=== PATIENT | male | born 1970 | race Caucasian/White ===

== ENCOUNTER → 2019-10-18 08:01 | Outpatient (BNVA) | payer BC, SELFPAY | PROVIDERS: Family Provider Family Medicine; PCP Family Medicine; Visit Provider Surgery | DX: L72.3 Sebaceous cyst (principal) | CPT/HCPCS: 88304 ==

== ENCOUNTER → 2021-07-10 16:09 | Outpatient (BNVA) | payer BC, SELFPAY | PROVIDERS: Family Provider Family Medicine; PCP Family Medicine; Referring Provider Family Medicine; Visit Provider Orthopaedic Surgery | DX: S89.91XA Unspecified injury of right lower leg, initial encounter (principal); W18.41XA Slipping, tripping and stumbling without falling due to stepping on object, initial encounter | CPT/HCPCS: 73560; 73565 ==

== ENCOUNTER 2022-09-04 13:37 | Emergency (ER) | payer BC, SELFPAY ==
[2022-09-04 13:42] VITALS: BP 131/74; PULSE 98; RESP 18; TEMP 38; O2SAT 94; BMI 31.1
--- NOTE | 2022-09-04 13:51 | XR_ITS ---
WS: [id number] Right knee, 3 views, 09/04/2022 Clinical Data: pain, swelling and fever Comparison: AP knees, right knee, 07/10/2021 Findings: The right knee arthroplasty shows the components are in good position. No periprosthetic fractures or loosening is seen. There is suprapatellar bursal swelling. XR/XR knee RT 3V* [id number] Impression: 1. Right knee arthroplasty. 2. Suprapatellar bursal swelling.
[2022-09-04 14:42] LABS: Basophils % 0.1 %; Hematocrit 42.6 % (42.0-52.0); Hemoglobin 14.2 g/dL (11.7-16.6); Lymphocytes # 0.9 10^3/uL (0.8-4.8); Lymphocytes % 5.1 %; Mean Corpuscular HGB Conc 33.3 g/dL (30.0-36.0); Mean Corpuscular Hemoglobin 28.5 pg (28.0-34.0); Mean Corpuscular Volume 85.5 fl (80-94); Mean Platelet Volume 10.1 fL (7.4-10.4); Monocytes # 0.9 10^3/uL (0.2-0.9); Monocytes % 5.3 %; Neutrophils # 14.98 10^3/uL (1.8-7.7); Neutrophils % 89.1 %; Nucleated Red Blood Cells % 0 %; Platelet Count 177 10^3/cmm (130-400); Red Blood Count 4.98 10^6/uL (4.1-5.3); Red Cell Distribution Width 13.1 % (12.1-15.1); White Blood Count 16.8 10^3/uL (4.0-10.0)
[2022-09-04 14:44] LABS: Erythrocyte Sedimentation Rate 43 mm/hr (0-10)
[2022-09-04 15:07] LABS: Alanine Aminotransferase 12 U/L (0-41); Alkaline Phosphatase 65 U/L (40-130); Aspartate Amino Transferase 14 U/L (0-40); Blood Urea Nitrogen 17 mg/dL (6-20); Calcium 8.8 mg/dL (8.5-10.5); Carbon Dioxide 22 mmol/L (22-29); Chloride 96 mmol/L (98-107); Globulin 3.3 g/dL (1.3-4.6); Glomerular Filtration Rate 88.6 mL/min (90-130); Glucose 156 mg/dL (65-115); Osmolality Calculated 275 mOsm/kg (285-295); Sodium 130 mmol/L (136-145); Total Bilirubin 0.4 mg/dL (0.15-1.2); Total Protein 7.3 g/dL (6.6-8.7)
[2022-09-04 15:23] LABS: Lactate (Lactic Acid level) 0.8 mmol/L (0.5-2.2)
[2022-09-04 15:54] LABS: Procalcitonin 0.32 ng/mL (0-0.5)
--- NOTE | 2022-09-04 16:03 | ED_ITS ---
HPI - Extremity Problem General: Chief complaint: Extremity Injury, Lower Stated complaint: right knee pain Time Seen by Provider: 09/04/22 16:03 History of Present Illness: Mr. Thomas is a 52-year-old gentleman with history of right knee replacement presenting to the emergency department for atraumatic onset of pain and swelling. Reports onset of symptoms a few days ago initially noticing some tightness or discomfort in the posterior aspect of his knee. He subsequently has developed increased swelling pain which is about the knee and radiates distally. He notes swelling and warmth. He has been febrile at home without other source of infection or infectious symptoms reported. Tmax 103. No other specific changes in health, exacerbating, or alleviating factors identified. Onset (ago): day(s) Pain Consistency: constant Quality: aching Radiation: distal Relieving factors: nothing Exacerbating factors: range of motion, weight bearing, walking and palpation Associated symptoms: Reports fever(s) Review of Systems General: Reports: 10 or more systems reviewed and unremarkable except in HPI and below Const: Reports: fever(s) PFSH ED PFSH: Surgical History History of lateral meniscus repair of right knee Family History Denies family history of Anesthesia complication Bleeding disorder Social History Smoking and tobacco status: never smoked Quit status (tobacco): has quit using tobacco Former quit date comment: AT 28 YEARS OLD Alcohol intake: former Former alcohol use details: QUIT AROUND 28 YRS OLD Adopted: No Caregiver/support person: Yes Lives independently: Yes Household members: spouse Housing: House Physical Exam Const: COMMON NORMALS: alert GENERAL APPEARANCE: cooperative, well developed and ill appearing HENMT: COMMON NORMALS: normocephalic and atraumatic HEAD & SCALP: normocephalic and atraumatic THROAT: posterior oropharynx normal Eye: COMMON NORMALS: conjunctivae normal CONJUNCTIVA: Yes conjunctivae normal SCLERA: sclerae normal Neck/C-Spine: COMMON NORMALS: supple GENERAL: Yes trachea midline Resp: COMMON NORMALS: clear to auscultation bilaterally EFFORT & INSPECTION: Yes able to speak in complete sentences AUSCULTATION: clear to auscultation bilaterally Cardio: COMMON NORMALS: regular rate and regular rhythm RATE: regular rate RHYTHM: regular rhythm GI: COMMON NORMALS: Soft to palpation PALPATION: Yes Soft to palpation and No Tenderness to palpation present (GI) Extremity: NARRATIVE EXTREMITY EXAM: Significant edema without overlying cellulitic changes to the right knee. There is warmth to palpation and tenderness. Tenderness distally or distal CMS intact. There is a small insect bite however this does not appear to be clinically significant as a source of infection. GENERAL: Yes normal exam except as noted and No edema Neuro: COMMON NORMALS: moves all extremities SENSORIUM/ORIENTATION: Yes alert and No Orientation impaired Psych: COMMON NORMALS: mental status grossly normal and Normal thought process present THOUGHT PROCESS: Normal thought process present Course Vital Signs: Vital signs: Vital Signs Temperature 100.4 F H 09/04/22 13:42 Pulse Rate 88 09/04/22 18:45 Respiratory Rate 20 H 09/04/22 18:45 Blood Pressure 148/78 09/04/22 18:45 Pulse Oximetry 95 09/04/22 18:45 Oxygen Delivery Me thod 09/04/22 13:42 MDM - Extremity (Nontraumatic) Medical Decision Making 52-year-old gentleman presenting with atraumatic knee pain and swelling associated with fever in the context of knee replacement. Exam concerning for infected joint. Patient reports he was and is febrile here with borderline high heart rate. Labs with leukocytosis, normal hemoglobin and platelet count. Mild hyponatremia and hypochloremia. Likely related dehydration. ESR and CMP are elevated. Negative urinalysis. No evidence of hardware complication on imaging, there is swelling. Discussed case with our orthopedic surgeon who subsequently discussed the case with patient's primary orthopedic surgeon. Patient be transferred for operative management. Discussed the case with patient's primary surgeon and he plans to obtain culture upon arrival, he wishes to delay antibiotics. Though certainly concerning patient is nontoxic appearance and given prolonged nature likely of need for antibiotics accurate culture results may need to greater than immediate antibiotic administration. Most likely etiology of patient symptoms of septic joint. Patient will be transferred. I recommended EMS transfer which the patient adamantly declined. After discussion of risks and Santos continue to perform this transfer care to be t ransferred by private vehicle. Medical Records I reviewed the patient's medical records. Lab Data I reviewed the patient's lab results. 09/04/22 14:32 09/04/22 14:32 Radiology Impressions Knee X-Ray 09/04/22 13:51 Impression: 1. Right knee arthroplasty. 2. Suprapatellar bursal swelling. Laboratory Results WBC 16.8 10^3/uL (4.0-10.0) H 09/04/22 14:32 RBC 4.98 10^6/uL (4.1-5.3) 09/04/22 14:32 Hgb 14.2 g/dL (11.7-16.6) 09/04/22 14:32 Hct 42.6 % (42.0-52.0) 09/04/22 14:32 MCV 85.5 fl (80-94) 09/04/22 14:32 MCH 28.5 pg (28.0-34.0) 09/04/22 14:32 MCHC 33.3 g/dL (30.0-36.0) 09/04/22 14:32 RDW 13.1 % (12.1-15.1) 09/04/22 14:32 Plt Count 177 10^3/cmm (130-400) 09/04/22 14:32 MPV 10.1 fL (7.4-10.4) 09/04/22 14:32 Neut % (Auto) 89.1 % 09/04/22 14:32 Lymph % (Auto) 5.1 % 09/04/22 14:32 [place] % (Auto) 5.3 % 09/04/22 14:32 Eos % (Auto) 0.0 % 09/04/22 14:32 Baso % (Auto) 0.1 % 09/04/22 14:32 Neut # (Auto) 14.98 10^3/uL (1.8-7.7) H 09/04/22 14:32 Lymph # (Auto) 0.9 10^3/uL (0.8-4.8) 09/04/22 14:32 [place] # (Auto) 0.9 10^3/uL (0.2-0.9) 09/04/22 14:32 Eos # (Auto) 0.0 10^3/uL (0.0-0.8) 09/04/22 14:32 Baso # (Auto) 0.0 10^3/uL (0.0-0.1) 09/04/22 14:32 Nucleated RBC % (auto) 0 % 09/04/22 14:32 Nucleated RBCs # 0.0 /100WBC 09/04/22 14:32 ESR 43 mm/hr (0-10) H 09/04/22 14:32 Sodium 130 mmol/L (136-145) L 09/04/22 14:32 Potassium 4.0 mmol/L (3.5-5.1) 09/04/22 14:32 Chloride 96 mmol/L (98-107) L 09/04/22 14:32 Carbon Dioxide 22 mmol/L (22-29) 09/04/22 14:32 Anion Gap 16.0 (5-19) 09/04/22 14:32 BUN 17 mg/dL (6-20) 09/04/22 14:32 Creatinine 0.9 mg/dL (0.7-1.2) 09/04/22 14:32 GFR Calculation 88.6 mL/min (90-130) L 09/04/22 14:32 Glucose 156 mg/dL (65-115) H 09/04/22 14:32 Calculated Osmolality 275 mOsm/kg (285-295) L 09/04/22 14:32 Lactic Acid 1.4 mmol/L (0.5-2.2) 09/04/22 17:40 Lactate 0.8 mmol/L (0.5-2.2) 09/04/22 14:32 Calcium 8.8 mg/dL (8.5-10.5) 09/04/22 14:32 Total Bilirubin 0.4 mg/dL (0.15-1.2) 09/04/22 14:32 AST 14 U/L (0-40) 09/04/22 14:32 ALT 12 U/L (0-41) 09/04/22 14:32 Alkaline Phosphatase 65 U/L (40-130) 09/04/22 14:32 C-Reactive Protein 210.0 mg/L (0.0-4.9) H 09/04/22 14:32 Total Protein 7.3 g/dL (6.6-8.7) 09/04/22 14:32 Albumin 4.0 g/dL (3.5-5.2) 09/04/22 14:32 Globulin 3.3 g/dL (1.3-4.6) 09/04/22 14:32 Procalcitonin 0.32 ng/mL (0-0.5) 09/04/22 14:32 Urine Color Yellow (Yellow) 09/04/22 15:59 Urine Appearance Clear (CLEAR) 09/04/22 15:59 Urine pH 6 (5-7) 09/04/22 15:59 Ur Specific [place] 1.005 (1.005-1.030) 09/04/22 15:59 Urine Protein Neg (Negative) 09/04/22 15:59 Urine Glucose (UA) Norm (Normal) 09/04/22 15:59 Urine Ketones Negative (Negative) 09/04/22 15:59 Urine Blood Trace (Negative) H 09/04/22 15:59 Urine Nitrate Negative (Negative) 09/04/22 15:59 Urine Bilirubin Neg (Negative) 09/04/22 15:59 Urine Urobilinogen Neg mg/dL (Negative) 09/04/22 15:59 Ur Leukocyte Esterase Negative (Negative) 09/04/22 15:59 Urine RBC Rare /hpf (0-2) 09/04/22 15:59 Urine WBC None /hpf (0-5) 09/04/22 15:59 Ur Squamous Epith Cells Rare /hpf (0-5) 09/04/22 15:59 Amorphous Sediment Not Reportable 09/04/22 15:59 Urine Bacteria None /hpf (NONE) 09/04/22 15:59 Discharge Plan Discharge Patient Disposition: Xfer Short-Term Hosp Clinical Impression: Knee pain, Septic joint of right knee joint, History of arthroplasty of right knee, SIRS (systemic inflammatory response syndrome) Condition: Stable Referrals: Travis Adams MD [Primary Care Provider] - Coding Level of Care Code ED Twist Maker for Stepan Chavis
[2022-09-04] MEDS: sodium chloride 0.9% 1,000 ML 999 ML IV (16:55)
[2022-09-04] MEDS: morphine 4 mg/mL SDV 1 mL IVP (16:55)
[2022-09-04 18:32] LABS: Add Urine Microscopic? YES; Bilirubin Urine Neg (Negative); Blood Urine Trace (Negative); Glucose Urine UA Norm (Normal); Ketones Urine Negative (Negative); Leukocyte Esterase Urine Negative (Negative); Nitrate Urine Negative (Negative); Protein Urine Neg (Negative); Specific Gravity, Urine 1.005 (1.005-1.030); Urine Appearance Clear (CLEAR); Urine Color Yellow (Yellow); Urobilinogen Urine Neg (Negative); pH Urine 6 (5-7)
[2022-09-04 18:45] VITALS: BP 148/78; PULSE 88; RESP 20; O2SAT 95
[2022-09-04 18:46] LABS: Lactic Sepsis W/Reflex 1.4 mmol/L (0.5-2.2)
[2022-09-04 19:17] LABS: Add Urine Culture? No; RBC Urine RARE /hpf (0-2); Squamous Epithelial Cell Urine RARE /hpf (0-5)
== END 2022-09-04 18:47 | disposition short-term general hospital (02) ==
PROVIDERS: Nurse Practitioner Family; Emergency Provider Emergency Medicine; PCP Family Medicine
DX: T84.53XA Infection and inflammatory reaction due to internal right knee prosthesis, initial encounter (principal); M00.9 Pyogenic arthritis, unspecified; R65.10 Systemic inflammatory response syndrome (SIRS) of non-infectious origin without acute organ dysfunction; Z96.651 Presence of right artificial knee joint; Z53.29 Procedure and treatment not carried out because of patient's decision for other reasons; E87.1 Hypo-osmolality and hyponatremia; Y79.2 Prosthetic and other implants, materials and accessory orthopedic devices associated with adverse incidents
CPT/HCPCS: 36415; 73562; 80053; 81001; 83605; 84145; 85025; 85651; 86140; 87040; 87077; 87186; 87205; 96374; 99284; J2270; J7030

== ENCOUNTER 2022-09-12 10:10 | Oncology outpatient (recurring) (ONCR) | payer BC, SELFPAY ==
[2022-09-12 11:21] LABS: Basophils % 0.3 %; Eosinophils # 0.4 10^3/uL (0.0-0.8); Eosinophils % 3.7 %; Hematocrit 42.2 % (42.0-52.0); Hemoglobin 13.7 g/dL (11.7-16.6); Lymphocytes # 1.8 10^3/uL (0.8-4.8); Lymphocytes % 18.8 %; Mean Corpuscular HGB Conc 32.5 g/dL (30.0-36.0); Mean Corpuscular Hemoglobin 28.1 pg (28.0-34.0); Mean Corpuscular Volume 86.7 fl (80-94); Mean Platelet Volume 9.4 fL (7.4-10.4); Monocytes # 0.9 10^3/uL (0.2-0.9); Monocytes % 9.3 %; Neutrophils # 6.52 10^3/uL (1.8-7.7); Neutrophils % 67.2 %; Nucleated Red Blood Cells % 0 %; Platelet Count 293 10^3/cmm (130-400); Red Blood Count 4.87 10^6/uL (4.1-5.3); Red Cell Distribution Width 12.9 % (12.1-15.1); White Blood Count 9.7 10^3/uL (4.0-10.0)
[2022-09-12 11:36] LABS: Erythrocyte Sedimentation Rate 93 mm/hr (0-10)
[2022-09-12 11:40] LABS: Alanine Aminotransferase 20 U/L (0-41); Albumin Level 3.3 g/dL (3.5-5.2); Alkaline Phosphatase 81 U/L (40-130); Anion Gap 15.5 (5-19); Aspartate Amino Transferase 21 U/L (0-40); Blood Urea Nitrogen 20 mg/dL (6-20); C Reactive Protein 175.2 mg/L (0.0-4.9); Calcium 9.9 mg/dL (8.5-10.5); Carbon Dioxide 27 mmol/L (22-29); Chloride 95 mmol/L (98-107); Globulin 4.6 g/dL (1.3-4.6); Glomerular Filtration Rate 101.5 mL/min (90-130); Glucose 111 mg/dL (65-115); Osmolality Calculated 279 mOsm/kg (285-295); Potassium 4.5 mmol/L (3.5-5.1); Sodium 133 mmol/L (136-145); Total Bilirubin 0.4 mg/dL (0.15-1.2); Total Protein 7.9 g/dL (6.6-8.7)
== END 2022-09-16 23:59 | disposition home or self-care (01) ==
PROVIDERS: PCP Family Medicine; Visit Provider Family Medicine
DX: T84.59XA Infection and inflammatory reaction due to other internal joint prosthesis, initial encounter (principal); Y79.2 Prosthetic and other implants, materials and accessory orthopedic devices associated with adverse incidents
CPT/HCPCS: 36592; 80053; 85025; 85651; 86140

== ENCOUNTER 2022-10-17 08:09 | Oncology outpatient (recurring) (ONCR) | payer BC, SELFPAY ==
[2022-09-19 10:57] LABS: Basophils % 0.7 %; Eosinophils # 0.2 10^3/uL (0.0-0.8); Eosinophils % 2.8 %; Hematocrit 38.8 % (42.0-52.0); Hemoglobin 12.7 g/dL (11.7-16.6); Lymphocytes # 1.5 10^3/uL (0.8-4.8); Lymphocytes % 24.7 %; Mean Corpuscular HGB Conc 32.7 g/dL (30.0-36.0); Mean Corpuscular Hemoglobin 28.3 pg (28.0-34.0); Mean Corpuscular Volume 86.6 fl (80-94); Mean Platelet Volume 9.2 fL (7.4-10.4); Monocytes # 0.6 10^3/uL (0.2-0.9); Monocytes % 9.9 %; Neutrophils # 3.79 10^3/uL (1.8-7.7); Neutrophils % 61.6 %; Nucleated Red Blood Cells % 0 %; Platelet Count 324 10^3/cmm (130-400); Red Blood Count 4.48 10^6/uL (4.1-5.3); Red Cell Distribution Width 12.9 % (12.1-15.1); White Blood Count 6.2 10^3/uL (4.0-10.0)
[2022-09-19 11:02] LABS: Erythrocyte Sedimentation Rate 68 mm/hr (0-10)
[2022-09-19 11:21] LABS: Alanine Aminotransferase 11 U/L (0-41); Albumin Level 3.2 g/dL (3.5-5.2); Alkaline Phosphatase 79 U/L (40-130); Anion Gap 13.3 (5-19); Aspartate Amino Transferase 19 U/L (0-40); Blood Urea Nitrogen 18 mg/dL (6-20); Carbon Dioxide 28 mmol/L (22-29); Chloride 98 mmol/L (98-107); Globulin 4.7 g/dL (1.3-4.6); Glomerular Filtration Rate 118.4 mL/min (90-130); Glucose 101 mg/dL (65-115); Osmolality Calculated 282 mOsm/kg (285-295); Potassium 4.3 mmol/L (3.5-5.1); Sodium 135 mmol/L (136-145); Total Bilirubin 0.2 mg/dL (0.15-1.2); Total Protein 7.9 g/dL (6.6-8.7)
[2022-09-26 11:53] LABS: Basophils % 0.8 %; Eosinophils # 0.3 10^3/uL (0.0-0.8); Eosinophils % 4.7 %; Hematocrit 38.6 % (42.0-52.0); Hemoglobin 12.2 g/dL (11.7-16.6); Lymphocytes # 1.7 10^3/uL (0.8-4.8); Lymphocytes % 32.1 %; Mean Corpuscular HGB Conc 31.6 g/dL (30.0-36.0); Mean Corpuscular Hemoglobin 27.4 pg (28.0-34.0); Mean Corpuscular Volume 86.5 fl (80-94); Mean Platelet Volume 9.6 fL (7.4-10.4); Monocytes # 0.5 10^3/uL (0.2-0.9); Monocytes % 10.2 %; Neutrophils # 2.77 10^3/uL (1.8-7.7); Nucleated Red Blood Cells % 0 %; Platelet Count 248 10^3/cmm (130-400); Red Blood Count 4.46 10^6/uL (4.1-5.3); Red Cell Distribution Width 12.8 % (12.1-15.1); White Blood Count 5.3 10^3/uL (4.0-10.0)
[2022-09-26 11:58] LABS: Erythrocyte Sedimentation Rate 71 mm/hr (0-10)
[2022-09-26 12:21] LABS: Alanine Aminotransferase 10 U/L (0-41); Albumin Level 3.4 g/dL (3.5-5.2); Alkaline Phosphatase 92 U/L (40-130); Anion Gap 13.4 (5-19); Aspartate Amino Transferase 19 U/L (0-40); Blood Urea Nitrogen 21 mg/dL (6-20); C Reactive Protein 33.7 mg/L (0.0-4.9); Calcium 8.9 mg/dL (8.5-10.5); Carbon Dioxide 26 mmol/L (22-29); Chloride 98 mmol/L (98-107); Globulin 4.7 g/dL (1.3-4.6); Glomerular Filtration Rate 141.5 mL/min (90-130); Glucose 106 mg/dL (65-115); Osmolality Calculated 279 mOsm/kg (285-295); Potassium 4.4 mmol/L (3.5-5.1); Sodium 133 mmol/L (136-145); Total Bilirubin 0.2 mg/dL (0.15-1.2); Total Protein 8.1 g/dL (6.6-8.7)
[2022-10-03 11:21] LABS: Erythrocyte Sedimentation Rate 45 mm/hr (0-10)
[2022-10-03 11:23] LABS: Basophils % 0.4 %; Eosinophils # 0.2 10^3/uL (0.0-0.8); Eosinophils % 3.7 %; Hematocrit 38.1 % (42.0-52.0); Hemoglobin 12.2 g/dL (11.7-16.6); Lymphocytes # 1.5 10^3/uL (0.8-4.8); Mean Corpuscular Hemoglobin 27.6 pg (28.0-34.0); Mean Corpuscular Volume 86.2 fl (80-94); Mean Platelet Volume 9.5 fL (7.4-10.4); Monocytes # 0.5 10^3/uL (0.2-0.9); Monocytes % 10.8 %; Neutrophils # 2.65 10^3/uL (1.8-7.7); Neutrophils % 53.9 %; Nucleated Red Blood Cells % 0 %; Platelet Count 195 10^3/cmm (130-400); Red Blood Count 4.42 10^6/uL (4.1-5.3); Red Cell Distribution Width 13.2 % (12.1-15.1); White Blood Count 4.9 10^3/uL (4.0-10.0)
[2022-10-03 11:37] LABS: Alanine Aminotransferase 8 U/L (0-41); Albumin Level 3.5 g/dL (3.5-5.2); Alkaline Phosphatase 84 U/L (40-130); Anion Gap 15.1 (5-19); Aspartate Amino Transferase 29 U/L (0-40); Blood Urea Nitrogen 15 mg/dL (6-20); C Reactive Protein 19.4 mg/L (0.0-4.9); Calcium 8.5 mg/dL (8.5-10.5); Carbon Dioxide 26 mmol/L (22-29); Chloride 106 mmol/L (98-107); Globulin 4.6 g/dL (1.3-4.6); Glomerular Filtration Rate 141.5 mL/min (90-130); Glucose 103 mg/dL (65-115); Osmolality Calculated 295 mOsm/kg (285-295); Potassium 5.1 mmol/L (3.5-5.1); Sodium 142 mmol/L (136-145); Total Bilirubin 0.2 mg/dL (0.15-1.2); Total Protein 8.1 g/dL (6.6-8.7)
[2022-10-10 11:03] LABS: Basophils % 0.4 %; Eosinophils # 0.2 10^3/uL (0.0-0.8); Eosinophils % 2.9 %; Hematocrit 38.8 % (42.0-52.0); Hemoglobin 12.4 g/dL (11.7-16.6); Lymphocytes # 1.4 10^3/uL (0.8-4.8); Lymphocytes % 26.6 %; Mean Corpuscular Hemoglobin 27.2 pg (28.0-34.0); Mean Corpuscular Volume 85.1 fl (80-94); Mean Platelet Volume 9.6 fL (7.4-10.4); Monocytes # 0.6 10^3/uL (0.2-0.9); Neutrophils # 2.99 10^3/uL (1.8-7.7); Neutrophils % 57.9 %; Nucleated Red Blood Cells % 0 %; Platelet Count 190 10^3/cmm (130-400); Red Blood Count 4.56 10^6/uL (4.1-5.3); Red Cell Distribution Width 13.4 % (12.1-15.1); White Blood Count 5.2 10^3/uL (4.0-10.0)
[2022-10-10 11:06] LABS: Erythrocyte Sedimentation Rate 46 mm/hr (0-10)
[2022-10-10 11:17] LABS: Alanine Aminotransferase 9 U/L (0-41); Albumin Level 3.7 g/dL (3.5-5.2); Alkaline Phosphatase 82 U/L (40-130); Anion Gap 14.3 (5-19); Aspartate Amino Transferase 28 U/L (0-40); Blood Urea Nitrogen 10 mg/dL (6-20); C Reactive Protein 14.8 mg/L (0.0-4.9); Calcium 8.9 mg/dL (8.5-10.5); Carbon Dioxide 26 mmol/L (22-29); Chloride 102 mmol/L (98-107); Globulin 4.6 g/dL (1.3-4.6); Glomerular Filtration Rate 118.4 mL/min (90-130); Glucose 107 mg/dL (65-115); Osmolality Calculated 286 mOsm/kg (285-295); Potassium 4.3 mmol/L (3.5-5.1); Sodium 138 mmol/L (136-145); Total Bilirubin 0.3 mg/dL (0.15-1.2); Total Protein 8.3 g/dL (6.6-8.7)
--- NOTE | 2022-10-17 09:06 | PC.NURSE ---
Patient checked in for routine PICC line care. Right arm noted to be swollen and discolored, patient stated his arm was sore but he worked in the garden yesterday so he thought it was from that. Nurse concerned for possible blood clot, so patient sent to the ER for evaluation.
== END 2022-10-17 23:59 | disposition home or self-care (01) ==
PROVIDERS: Internal Medicine Infectious Disease; PCP Family Medicine; Visit Provider Family Medicine
DX: Z53.9 Procedure and treatment not carried out, unspecified reason (principal); T84.59XA Infection and inflammatory reaction due to other internal joint prosthesis, initial encounter; Y83.8 Other surgical procedures as the cause of abnormal reaction of the patient, or of later complication, without mention of misadventure at the time of the procedure
CPT/HCPCS: 36592; 80053; 85025; 85651; 86140; 86141

== ENCOUNTER 2022-10-17 08:21 | Emergency (ER) | payer BC, SELFPAY ==
[2022-10-17 08:38] VITALS: BP 138/86; PULSE 87; RESP 14; TEMP 36.7; O2SAT 98; BMI 30.9
--- NOTE | 2022-10-17 08:56 | USCV_ITS ---
Claude Reis Age: 52 Gender: M : 1970 Exam Date: 10/17/2022 10:06 Ordering Phys: Ricky León Technologist: JANA Exam Location: [facility] – [place] Indication: rt arm swelling. rt picc line FINDINGS: rt axillary v thrombosis. non occusive. CONCLUSIONS Non-occlusive RIGHT axillary thrombus. Remainder of RUE veins are patent. Vern Calixto MD (Electronically Signed) Final Date: 17 October 2022 11:23 S
--- NOTE | 2022-10-17 08:57 | W.ED.EXTPRO ---
Documented by User: ADRIA Gutierrez 10/17/22 11:44 HPI - Extremity Problem General: Chief complaint: Extremity Problem,Nontraumatic Stated complaint: infusion sent for possible bloodclot right arm Time Seen by Provider: 10/17/22 08:22 History of Present Illness: Patient is a 52-year-old male that comes to the ED with right arm swelling. Patient has had a PICC line in right arm for the past 6 weeks. He has been getting IV antibiotic infusions to treat right knee joint infection. Yesterday he was at physical therapy and he did do some upper body movements such as push-ups. Last night he felt a little achy/sore and some of his muscles in his upper arm and upper back. This morning he woke up and his right arm was more swollen than his left. Denies any other complaints with PICC line such as redness, warmth, puslike drainage or tenderness. Patient is actually supposed to see his doctor in [place] today to get PICC line removed. denies any fevers, chest pain or shortness of breath. He denies any history of past DVTs or blood clots. Associated symptoms: Deny chest pain, fever(s) or rash Review of Systems Const: Denies: fever(s), chills or fatigue Eyes: Denies: change in vision or eye discomfort ENMT: Denies: throat pain, odynophagia, nasal discharge or nasal congestion Card: Denies: chest pain, palpitations, edema, swelling of feet/ankles, dyspnea on exertion or orthopnea Resp: Denies: dyspnea, productive cough or non-productive cough GI: Denies: abdominal pain, nausea, vomiting, diarrhea, constipation or hematochezia : Denies: flank pain, difficulty urinating, dysuria or hematuria Musc: Reports: extremity swelling (Right arm swelling); Denies: neck pain, back pain or extremity pain Skin/Breast: Denies: rash or new lesions Neuro: Denies: headache(s), numbness in extremities or weakness in extremities PFSH ED PFSH: Surgical History History of lateral meniscus repair of right knee Family History Denies family history of Anesthesia complication Bleeding disorder Social History Smoking and tobacco status: never smoked Quit status (tobacco): has quit using tobacco Former quit date comment: AT 28 YEARS OLD Alcohol intake: former Former alcohol use details: QUIT AROUND 28 YRS OLD Adopted: No Caregiver/support person: Yes Lives independently: Yes Household members: spouse Housing: House Physical Exam Const: COMMON NORMALS: no acute distress, patient oriented x3 and alert HENMT: COMMON NORMALS: normocephalic HEAD & SCALP: normocephalic MOUTH: Normal oral and palatal mucosa present THROAT: posterior oropharynx normal and uvula midline Neck/C-Spine: COMMON NORMALS: supple GENERAL: Yes normal visual inspection Resp: COMMON NORMALS: normal respiratory effort, No retractions, No use of accessory muscles and clear to auscultation bilaterally AUSCULTATION: clear to auscultation bilaterally Cardio: COMMON NORMALS: regular rate, regular rhythm, S1 normal heart sound present, S2 normal heart sound present, No gallops present (Cardio), No clicks present (Cardio), No murmurs present (Cardio) and Peripheral pulses 2+ throughout RATE: regular rate RHYTHM: regular rhythm HEART SOUNDS: S1 normal heart sound present and S2 normal heart sound present PERIPHERAL PULSES: Peripheral pulses 2+ throughout GI: COMMON NORMALS: Normal to inspection, nondistended, normoactive bowel sounds present, Soft to palpation, non-tender and no masses PALPATION: Yes Soft to palpation : COMMON NORMALS: Yes no CVA tenderness BLADDER/KIDNEY EXAM: Yes no CVA tenderness Back/Pelvis: COMMON NORMALS: no CVA tenderness Extremity: NARRATIVE EXTREMITY EXAM: Right arm?generalized nonpitting edema of right arm. PICC line is in place and right upper arm and there is no erythema, warmth, tenderness or purulent discharge around PICC line. Neuro: COMMON NORMALS: patient oriented x3 SENSORIUM/ORIENTATION: Yes alert GAIT: Yes Normal gait present Skin: GENERAL SKIN EXAM: dry skin Course Vital Signs: Vital signs: Vital Signs Temperature 98.1 F 10/17/22 11:58 Pulse Rate 87 10/17/22 11:58 Respiratory Rate 14 10/17/22 11:58 Blood Pressure 138/86 10/17/22 11:58 Pulse Oximetry 98 10/17/22 11:58 Oxygen Delivery Me thod 10/17/22 08:38 MDM - Extremity (Nontraumatic) Medical Decision Making Patient is a 52-year-old male that comes to the ED with right arm swelling. Patient has had a PICC line in right arm for the past 6 weeks. He has been getting IV antibiotic infusions to treat right knee joint infection. Yesterday he was at physical therapy and he did do some upper body movements such as push-ups. Last night he felt a little achy/sore and some of his muscles in his upper arm and upper back. This morning he woke up and his right arm was more swollen than his left. Denies any other complaints with PICC line such as redness, warmth, puslike drainage or tenderness. Patient is actually supposed to see his doctor in [place] today to get PICC line removed. denies any fevers, chest pain or shortness of breath. He denies any history of past DVTs or blood clots. Vitals are stable. Right arm?generalized nonpitting edema of right arm. PICC line is in place and right upper arm and there is no erythema, warmth, tenderness or purulent discharge around PICC line. Vitals are stable. Patient appears nontoxic in no acute distress. Right arm?generalized nonpitting edema of right arm. PICC line is in place and right upper arm and there is no erythema, warmth, tenderness or purulent discharge around PICC line. Ultrasound venous duplex right upper extremity showed DVT of axillary vein. Patient's PICC line was scheduled to come out today and he is finished all his course of antibiotics, so we took PICC line out here in the ED. Patient was given dose of blood thinner here in the ED sent home with a prescription for Eliquis. Told to follow-up with his PCP within the next week for reevaluation and to further manage blood thinner medication. Return to ED precautions given. Patient understood and agreed with plan. Imaging Data US Vascular: Radiologist's impression: Ultrasound venous duplex of right upper extremity?prelim report showed DVT in axillary vein Discharge Plan Discharge Patient Disposition: Home Clinical Impression: PIC line (peripherally inserted central catheter) removal Deep vein thrombosis (DVT) of axillary vein of right upper extremity Qualifiers: Chronicity: acute Qualified Code(s): I82.A11 - Acute embolism and thrombosis of right axillary vein Condition: Stable Prescriptions: New apixaban 5 mg tablet 5 mg PO BID Qty: 60 0RF Rx Instructions: Take 2 tabs (10mg) PO BID for the first 7 days, Then take 1 tab (5mg) PO BID. No Action Men's Multi-Vitamin Tablet 1 tab PO DAILY Fish Oil Concentrate 1,000 mg Capsule 1,000 mg PO DAILY cefadroxil 500 mg capsule 500 mg PO BID Vitamin D3 50 mcg (2,000 unit) Capsule 50 mcg PO DAILY Discharge Orders: Discharge ED (Routine); Ordered 10/17/22 Ordered By: Ricky León Referrals: Travis Adams MD [Primary Care Provider] - Discharge Diet: Regular Discharge Activity: Increase activity as tolerated Patient Instructions: Apixaban (By mouth), Deep Vein Thrombosis (ED) Activity Restrictions/Additional Instructions: Follow-up with medical provider as directed in the next 7 to 10 days for follow-up and further management of blood thinner medication. Take medications as prescribed. You can start your first dose of apixaban/Eliquis tomorrow since she received daily dose in ED today. Return to the ER or your medical provider if condition worsens. Please read and understand discharge instructions. Thank you for choosing [facility] for your healthcare needs today. Please realize this is an emergency room and that we are providing you with a medical screening exam and this may not be complete and all inclusive of all the testing and or work up that you may need to determine your ailment or severity of your illness. It is very important that you follow up as instructed or that you return to the Emergency Department should you have concerns or if your condition changes or worsens in any way. Coding Level of Care Code ED Seismograph Shooter for Chg Fwd Documented by User: Tapan Garcia DO 10/17/22 13:16 HPI - Extremity Problem General: Chief complaint: Extremity Problem,Nontraumatic Stated complaint: infusion sent for possible bloodclot right arm Time Seen by Provider: 10/17/22 08:22 PFS ED PFSH: Surgical History History of lateral meniscus repair of right knee Family History Denies family history of Anesthesia complication Bleeding disorder Social History Smoking and tobacco status: never smoked Quit status (tobacco): has quit using tobacco Former quit date comment: AT 28 YEARS OLD Alcohol intake: former Former alcohol use details: QUIT AROUND 28 YRS OLD Adopted: No Caregiver/support person: Yes Lives independently: Yes Household members: spouse Housing: House Course Vital Signs: Vital signs: Vital Signs Temperature 98.1 F 10/17/22 11:58 Pulse Rate 87 10/17/22 11:58 Respiratory Rate 14 10/17/22 11:58 Blood Pressure 138/86 10/17/22 11:58 Pulse Oximetry 98 10/17/22 11:58 Oxygen Delivery Me thod 10/17/22 08:38 MDM - Extremity (Nontraumatic) Medical Decision Making Patient is a 52-year-old male that comes to the ED with right arm swelling. Patient has had a PICC line in right arm for the past 6 weeks. He has been getting IV antibiotic infusions to treat right knee joint infection. Yesterday he was at physical therapy and he did do some upper body movements such as push-ups. Last night he felt a little achy/sore and some of his muscles in his upper arm and upper back. This morning he woke up and his right arm was more swollen than his left. Denies any other complaints with PICC line such as redness, warmth, puslike drainage or tenderness. Patient is actually supposed to see his doctor in [place] today to get PICC line removed. denies any fevers, chest pain or shortness of breath. He denies any history of past DVTs or blood clots. Vitals are stable. Right arm?generalized nonpitting edema of right arm. PICC line is in place and right upper arm and there is no erythema, warmth, tenderness or purulent discharge around PICC line. Vitals are stable. Patient appears nontoxic in no acute distress. Right arm?generalized nonpitting edema of right arm. PICC line is in place and right upper arm and there is no erythema, warmth, tenderness or purulent discharge around PICC line. Ultrasound venous duplex right upper extremity showed DVT of axillary vein. Patient's PICC line was scheduled to come out today and he is finished all his course of antibiotics, so we took PICC line out here in the ED. Patient was given dose of blood thinner here in the ED sent home with a prescription for Eliquis. Told to follow-up with his PCP within the next week for reevaluation and to further manage blood thinner medication. Return to ED precautions given. Patient understood and agreed with plan. Chart reviewed and patient discussed with midlevel. Agree with assessment and plan. Discharge Plan Discharge Patient Disposition: Home Clinical Impression: PIC line (peripherally inserted central catheter) removal Deep vein thrombosis (DVT) of axillary vein of right upper extremity Qualifiers: Chronicity: acute Qualified Code(s): I82.A11 - Acute embolism and thrombosis of right axillary vein Condition: Stable Prescriptions: New apixaban 5 mg tablet 5 mg PO BID Qty: 60 0RF Rx Instructions: Take 2 tabs (10mg) PO BID for the first 7 days, Then take 1 tab (5mg) PO BID. No Action Men's Multi-Vitamin Tablet 1 tab PO DAILY Fish Oil Concentrate 1,000 mg Capsule 1,000 mg PO DAILY cefadroxil 500 mg capsule 500 mg PO BID Vitamin D3 50 mcg (2,000 unit) Capsule 50 mcg PO DAILY Discharge Orders: Discharge ED (Routine); Ordered 10/17/22 Ordered By: Ricky León Referrals: Travis Adams MD [Primary Care Provider] - Discharge Diet: Regular Discharge Activity: Increase activity as tolerated Patient Instructions: Apixaban (By mouth), Deep Vein Thrombosis (ED) Activity Restrictions/Additional Instructions: Follow-up with medical provider as directed in the next 7 to 10 days for follow-up and further management of blood thinner medication. Take medications as prescribed. You can start your first dose of apixaban/Eliquis tomorrow since she received daily dose in ED today. Return to the ER or your medical provider if condition worsens. Please read and understand discharge instructions. [facility]. Please realize this is an emergency room and that we are providing you with a medical screening exam and this may not be complete and all inclusive of all the testing and or work up that you may need to determine your ailment or severity of your illness. It is very important that you follow up as instructed or that you return to the Emergency Department should you have concerns or if your condition changes or worsens in any way. Coding Level of Care Code ED Seismograph Shooter for Stepan Chavis
[2022-10-17] MEDS: enoxaparin 150 mg/mL Syringe SUBCUT (11:36)
[2022-10-17 11:58] VITALS: BP 138/86; PULSE 87; RESP 14; TEMP 36.7; O2SAT 98
== END 2022-10-17 11:59 | disposition home or self-care (01) ==
PROVIDERS: Emergency Provider Physician Assistant; PCP Family Medicine
DX: I82.A11 Acute embolism and thrombosis of right axillary vein (principal); Z46.89 Encounter for fitting and adjustment of other specified devices; Z87.891 Personal history of nicotine dependence
CPT/HCPCS: 93971; 96372; 99284; J1650

== ENCOUNTER 2023-03-05 08:31 | Outpatient (CLI) | payer BC, SELFPAY ==
[2023-03-05 10:12] LABS: Basophils % 0.4 %; Eosinophils # 0.1 10^3/uL (0.0-0.8); Eosinophils % 2.6 %; Hematocrit 48.1 % (42.0-52.0); Lymphocytes # 1.4 10^3/uL (0.8-4.8); Mean Corpuscular HGB Conc 33.3 g/dL (30.0-36.0); Mean Corpuscular Hemoglobin 28.3 pg (28.0-34.0); Mean Corpuscular Volume 85.1 fl (80-94); Mean Platelet Volume 9.7 fL (7.4-10.4); Monocytes # 0.5 10^3/uL (0.2-0.9); Neutrophils # 2.99 10^3/uL (1.8-7.7); Neutrophils % 58.8 %; Nucleated Red Blood Cells % 0 %; Platelet Count 166 10^3/cmm (130-400); Red Blood Count 5.65 10^6/uL (4.1-5.3); White Blood Count 5.1 10^3/uL (4.0-10.0)
[2023-03-05 10:15] LABS: Erythrocyte Sedimentation Rate 4 mm/hr (0-10)
[2023-03-05 10:34] LABS: Alanine Aminotransferase 19 U/L (0-41); Albumin Level 4.1 g/dL (3.5-5.2); Alkaline Phosphatase 93 U/L (40-130); Aspartate Amino Transferase 25 U/L (0-40); Blood Urea Nitrogen 16 mg/dL (6-20); C Reactive Protein 4.6 mg/L (0.0-4.9); Calcium 8.5 mg/dL (8.5-10.5); Carbon Dioxide 26 mmol/L (22-29); Chloride 104 mmol/L (98-107); Glomerular Filtration Rate 101.5 mL/min (90-130); Glucose 103 mg/dL (65-115); Osmolality Calculated 289 mOsm/kg (285-295); Sodium 139 mmol/L (136-145); Total Bilirubin 0.3 mg/dL (0.15-1.2); Total Protein 7.1 g/dL (6.6-8.7)
[2023-03-05 10:57] LABS: Anion Gap 13.5 (5-19); Potassium 4.5 mmol/L (3.5-5.1)
== END 2023-03-05 08:32 | disposition home or self-care (01) ==
PROVIDERS: PCP Family Medicine; Visit Provider Internal Medicine Infectious Disease
DX: T84.50XD Infection and inflammatory reaction due to unspecified internal joint prosthesis, subsequent encounter (principal); Y83.8 Other surgical procedures as the cause of abnormal reaction of the patient, or of later complication, without mention of misadventure at the time of the procedure
CPT/HCPCS: 36415; 80053; 85025; 85651; 86140